=== PATIENT | male | born 1960 | race Hispanic/Latino ===

== ENCOUNTER 2016-11-02 09:36 | Inpatient (IN) | payer MEDICARE ==
[2016-11-02 09:37] VITALS: BMI 703.0
[2016-11-02] MEDS ORDERED: Sodium Chloride 0.9% 1,000 ML IV ONE (09:55)
--- NOTE | 2016-11-02 10:06 | C.PDOC ---
History Of Present Illness 56 y/o male with htn c/o polyuria, polydipsia and occasional blurred vision for the last week, not improving, pt has no hx dm. Time Seen by Provider: 11/02/16 09:55 Chief Complaint (Nursing): High Blood Sugar History Per: Patient, Family History/Exam Limitations: no limitations Onset/Duration Of Symptoms: Days (7) Current Symptoms Are (Timing): Still Present Severity: Moderate Current Diabetic Medications: None Associated Infectious Symptoms: Urinary Frequency. denies: Cough, Sore Throat, Nausea, Vomiting Treatment Prior To Provider Evaluation: None Past Medical History Reviewed: Historical Data, Nursing Documentation, Vital Signs Vital Signs: Last Vital Signs Temp 98.3 F 11/02/16 09:42 Pulse 90 11/02/16 09:42 Resp 16 11/02/16 09:42 BP 124/79 11/02/16 09:42 Pulse Ox 95 11/02/16 11:31 - Medical History PMH: HTN Family History: States: Unknown Family Hx - Social History Hx Tobacco Use: Yes Hx Alcohol Use: No Hx Substance Use: No - Immunization History Hx Tetanus Toxoid Vaccination: No Hx Influenza Vaccination: No Hx Pneumococcal Vaccination: No Review Of Systems Constitutional: Negative for: Fever, Chills Cardiovascular: Negative for: Chest Pain, Palpitations Respiratory: Negative for: Cough, Shortness of Breath Gastrointestinal: Negative for: Nausea, Vomiting, Abdominal Pain Genitourinary: Positive for: Frequency Skin: Negative for: Rash Neurological: Negative for: Weakness, Numbness Physical Exam - Physical Exam Appears: Non-toxic, No Acute Distress, Other (overweight male) Skin: Warm Head: Atraumatic, Normacephalic Eye(s): bilateral: Normal Inspection, PERRL Oral Mucosa: Dry Neck: Normal ROM, Supple Chest: Symmetrical, No Deformity, No Tenderness Cardiovascular: Rhythm Regular, No Murmur Respiratory: Normal Breath Sounds, No Wheezing Gastrointestinal/Abdominal: Bowel Sounds, Soft, No Tenderness, No Distention, No Guarding Extremity: Normal ROM, No Pedal Edema, No Calf Tenderness Neurological/Psych: Oriented x3, Normal Speech, Normal Cognition ED Course And Treatment - Laboratory Results Result Diagrams: 11/02/16 10:19 11/02/16 10:19 O2 Sat by Pulse Oximetry: 95 Medical Decision Making Medical Decision Makin56 y/o with new onset dm; labs ivf, insulin, re-eval 1130 am will admit pt to Dr Lilia Stewart for glucose control Disposition Discussed With Dr.: Renard Stewart Doctor Will See Patient In The: Hospital - Disposition Disposition Time: 11:30 Condition: STABLE Forms: [facility] (Slovenian) - Clinical Impression Clinical Impression: New onset type 2 diabetes mellitus, Hyperglycemia
[2016-11-02 10:23] LABS: BASO # 0.1 K/uL (0.0-0.2); BASO % 0.7 % (0.0-2.0); EOS # 0.2 K/uL (0.0-0.7); EOS % 2.1 % (0.0-4.0); HEMATOCRIT 44.8 % (35.0-51.0); LYMPH # 2.4 K/uL (1.0-4.3); LYMPH % 30.7 % (20.0-40.0); MEAN CELL VOLUME 87.1 fL (80.0-94.0); MEAN CORPUSCULAR HEMOGLOBIN 29.6 pg (27.0-31.0); MEAN PLATELET VOLUME 9.4 fL (7.2-11.7); MONO # 0.6 K/uL (0.0-0.8); MONO % 7.6 % (0.0-10.0); RED CELL DISTRIBUTION WIDTH 13.2 % (11.5-14.5); WHITE BLOOD COUNT 7.7 K/uL (4.8-10.8)
[2016-11-02 10:27] LABS: RBC URINE 1 /hpf (0-3); URINE BILIRUBIN NEGATIVE (NEGATIVE); URINE BLOOD NEGATIVE (NEGATIVE); URINE COLOR Straw (YELLOW); URINE GLUCOSE (UA) 3+ mg/dL (Normal); URINE KETONE NEGATIVE (NEGATIVE); URINE LEUKOCYTE ESTERASE NEG Leu/uL (Negative); URINE PROTEIN NEGATIVE (NEGATIVE); URINE UROBILINOGEN NORMAL mg/dL (0.2-1.0); WBC URINE 1 /hpf (0-5)
[2016-11-02 10:28] LABS: VENOUS BLOOD GAS BASE EXCESS -0.3 mmol/L (0.0-2.0); VENOUS BLOOD GAS PCO2 38 mmHg (40-60); VENOUS BLOOD PH 7.41 (7.32-7.43)
[2016-11-02 10:39] LABS: ALB/GLOB RATIO 1.3 (1.0-2.1); ALKALINE PHOSPHATASE 163 U/L (38-126); ALT/SGPT 30 U/L (21-72); AST/SGOT 20 U/L (17-59); BILIRUBIN,TOTAL 0.7 mg/dL (0.2-1.3); BLOOD UREA NITROGEN 19 mg/dL (9-20); CALCIUM 8.7 mg/dl (8.6-10.4); CARBON DIOXIDE 21 mmol/L (22-30); CHLORIDE 96 mmol/L (98-107); GFR AFRICAN-AMERICAN > 60; POTASSIUM 4.2 mmol/L (3.6-5.2); SODIUM 133 mmol/L (132-148); TOTAL PROTEIN 6.9 g/dL (6.3-8.3)
[2016-11-02 10:44] LABS: GLUCOSE,RANDOM 558 mg/dL (75-110)
[2016-11-02] MEDS ORDERED: (Novolin R) Insulin Human Regular 100 units/ml vial IV ONE (10:47)
[2016-11-02] MEDS ORDERED: (Novolin R) Insulin Human Regular 100 units/ml vial ONE (10:50)
[2016-11-02] MEDS ORDERED: Sodium Chloride 0.9% 1,000 ML IV SCH (11:45)
--- NOTE | 2016-11-02 14:33 | RAD ---
HISTORY: Decreased breath sounds at the lung bases. COMPARISON: 03/01/2012. TECHNIQUE: Chest PA and lateral FINDINGS: LUNGS: No active pulmonary disease. PLEURA: No significant pleural effusion identified. No pneumothorax apparent. CARDIOVASCULAR: No radiographic findings to suggest acute or significant cardiovascular disease. OSSEOUS STRUCTURES: No significant abnormalities. VISUALIZED UPPER ABDOMEN: Normal. OTHER FINDINGS: None. IMPRESSION: No active disease. No significant interval change compared to the prior examination(s). No preliminary report provided by emergency department personnel.
[2016-11-02] MEDS: Sodium Chloride 0.9% 1,000 ML IV SCH (14:48)
[2016-11-02] MEDS ORDERED: (Novolin R) Insulin Human Regular 100 units/ml vial SC SCH (16:30)
[2016-11-02] MEDS: (Novolin R) Insulin Human Regular 100 units/ml vial SC SCH ×2 (16:56→21:36)
[2016-11-02 17:52] VITALS: RESP 20
--- NOTE | 2016-11-02 18:24 | CP.PCM.HP ---
Past Patient History - Infectious Disease Hx of Infectious Diseases: None - Past Medical History & Family History Past Medical History?: No - Past Social History Smoking Status: Light Smoker < 10 Cigarettes Daily - CARDIAC Hx Cardiac Disorders: Yes Hx Hypertension: Yes - PULMONARY Hx Respiratory Disorders: No - NEUROLOGICAL Hx Neurological Disorder: No - HEENT Hx HEENT Problems: No - RENAL Hx Chronic Kidney Disease: No - ENDOCRINE/METABOLIC Hx Endocrine Disorders: No - HEMATOLOGICAL/ONCOLOGICAL Hx Blood Disorders: No - INTEGUMENTARY Hx Dermatological Problems: No - MUSCULOSKELETAL/RHEUMATOLOGICAL Hx Musculoskeletal Disorders: No Hx Falls: No - GASTROINTESTINAL Hx Gastrointestinal Disorders: No - GENITOURINARY/GYNECOLOGICAL Hx Genitourinary Disorders: No - PSYCHIATRIC Hx Psychophysiologic Disorder: No Hx Substance Use: No - SURGICAL HISTORY Hx Surgeries: No - ANESTHESIA Hx Anesthesia: No Meds Allergies/Adverse Reactions: Allergies Allergy/AdvReac Type Severity Reaction Status Date / Time No Known Allergies Allergy Verified 11/02/16 09:52 Physical Exam - Constitutional Appears: Well - Head Exam Head Exam: ATRAUMATIC, NORMAL INSPECTION, NORMOCEPHALIC - Eye Exam Eye Exam: EOMI, Normal appearance, PERRL Pupil Exam: NORMAL ACCOMODATION, PERRL - ENT Exam ENT Exam: Mucous Membranes Moist, Normal Exam - Neck Exam Neck exam: Positive for: Normal Inspection - Respiratory Exam Respiratory Exam: Decreased Breath Sounds - Cardiovascular Exam Cardiovascular Exam: REGULAR RHYTHM, +S1, +S2 - GI/Abdominal Exam GI & Abdominal Exam: Diminished Bowel Sounds, Soft - Rectal Exam Rectal Exam: Deferred Results - Vital Signs Recent Vital Signs: Last Vital Signs Temp 98.2 F 11/02/16 16:00 Pulse 81 11/02/16 16:00 Resp 20 11/02/16 16:00 BP 129/83 11/02/16 16:00 Pulse Ox 96 11/02/16 16:00 - Labs Result Diagrams: 11/02/16 10:19 11/02/16 10:19 Labs: Laboratory Results - last 24 hr 11/02/16 16:24 POC Glucose (mg/dL) 488 H*
[2016-11-03] MEDS: Sodium Chloride 0.9% 1,000 ML IV SCH ×4 (02:02→21:31)
[2016-11-03 07:32] LABS: CHLORIDE 103 mmol/L (98-107); POTASSIUM 3.9 mmol/L (3.6-5.2); SODIUM 134 mmol/L (132-148)
[2016-11-03 07:34] LABS: CHOLESTEROL 191 mg/dL (0-199); GFR AFRICAN-AMERICAN > 60
[2016-11-03 07:35] LABS: BLOOD UREA NITROGEN 14 mg/dL (9-20); CALCIUM 8.1 mg/dl (8.6-10.4); CARBON DIOXIDE 23 mmol/L (22-30); GLUCOSE,RANDOM 373 mg/dL (75-110)
[2016-11-03 07:53] LABS: THYROID STIMULATING HORMONE 1.39 mIU/L (0.46-4.68)
[2016-11-03] MEDS: (Novolin R) Insulin Human Regular 100 units/ml vial SC SCH ×4 (08:22→22:15)
[2016-11-03] MEDS ORDERED: (Novolin R) Insulin Human Regular 100 units/ml vial SC ONE (12:08)
--- NOTE | 2016-11-03 15:24 | CP.PCM.PN ---
Subjective - Date & Time of Evaluation Date of Evaluation: 11/03/16 Time of Evaluation: 08:00 - Subjective Subjective: clinically same Objective - Vital Signs/Intake and Output Vital Signs (last 24 hours): Temp Pulse Resp BP Pulse Ox 98.5 F 73 20 124/85 96 11/03/16 08:00 11/03/16 08:00 11/03/16 08:00 11/03/16 08:00 11/03/16 08:00 - Medications Medications: Current Medications Glimepiride (Amaryl) 4 mg PO ACD [facility] Last Admin: 11/02/16 16:57 Dose: 4 mg Heparin Sodium (Porcine) (Heparin) 5,000 units SC Q12 [facility] Sodium Chloride (Sodium Chloride 0.9%) 1,000 mls @ 80 mls/hr IV .[id number] [facility] Last Admin: 11/03/16 14:30 Dose: Not Given Insulin Human Regular (Novolin R) 0 unit SC ACHS [facility] PRN Reason: Protocol Last Admin: 11/03/16 12:12 Dose: Not Given Lisinopril (Zestril) 5 mg PO DAILY [facility] Last Admin: 11/03/16 09:46 Dose: 5 mg Metformin HCl (Glucophage) 500 mg PO ACBD [facility] Last Admin: 11/03/16 08:21 Dose: 500 mg - Constitutional Appears: Well - Head Exam Head Exam: ATRAUMATIC, NORMAL INSPECTION, NORMOCEPHALIC - Eye Exam Eye Exam: EOMI, Normal appearance, PERRL Pupil Exam: NORMAL ACCOMODATION, PERRL - ENT Exam ENT Exam: Mucous Membranes Moist, Normal Exam - Neck Exam Neck Exam: Full ROM, Normal Inspection. absent: Lymphadenopathy - Respiratory Exam Respiratory Exam: Decreased Breath Sounds - Cardiovascular Exam Cardiovascular Exam: REGULAR RHYTHM, +S1, +S2 - GI/Abdominal Exam GI & Abdominal Exam: Soft, Diminished Bowel Sounds - Rectal Exam Rectal Exam: Deferred
[2016-11-03] MEDS ORDERED: (Lantus) Insulin Glargine, Recombinant SC SCH (22:00)
[2016-11-04 00:31] VITALS: O2SAT 97
--- NOTE | 2016-11-04 06:39 | PN ---
ENDO FOLLOWUP NOTE DATE: LOCATION: Room 353. SUBJECTIVE: This is a 56-year-old male with recent uncontrolled type 2 diabetes, presenting here with marked hyperglycemic accelerations and actually continues to out persistent glycemic accelerations as noted thereof. His glucose values today have ranged from 370 to 449 mg/dL. It was 318 at bedtime last night. LABORATORY DATA: The latest chemistry showed a BUN of 14, sodium 134, potassium 3.9, chloride 103, CO2 of 23, glucose 373, and creatinine 0.9. PLAN: Being of recent onset of type 2 diabetes, we should except enough endogenous pancreatic reserve of his insulin. So, the oral hypoglycemic drug therapy given combination has been ordered right away on admission and was started on metformin given as 500 mg b.i.d. and Amaryl given as 4 mg once daily as ordered. However, because of the persistent hyperglycemic accelerations, we will start him right away tonight on the basal insulin given as Lantus 14 units subcu at bedtime daily to start tonight. We will also increase the metformin to 1 gm b.i.d. before meals as ordered. We will maximize also his Amaryl to 4 mg b.i.d. before meals as given. We will continue the low dose correction scale using regular insulin as given. We will titrate incrementally as indicated to optimize metabolic control. We will continue also the IV hydration to replenish the lost fluid and electrolytes as expected. We will obtain serum chemistry and supplement according as needed. We will follow up. Yolanda Tee MD
[2016-11-04] MEDS: (Novolin R) Insulin Human Regular 100 units/ml vial SC SCH ×3 (08:19→17:25)
[2016-11-04] MEDS: Sodium Chloride 0.9% 1,000 ML IV SCH (11:15)
--- NOTE | 2016-11-04 12:23 | PN ---
ENDO FOLLOWUP NOTE LOCATION: Room #353. SUBJECTIVE: This is a 56-year-old male with recent diagnosis of uncontrolled type 2 diabetes and most likely insulin requiring at this time because of persistent hyperglycemic accelerations despite the initiation of dual oral hypoglycemic drug therapy as given. His glucose values has ranged from 265 to 298 and 405 mg/dL. His latest chemistries shows a BUN of 14, sodium 134, potassium 3.9, chloride 103, CO2 23, glucose 373 and creatinine 0.9. His triglycerides levels are 467 as suspected with recent diagnosis of uncontrolled diabetes mellitus. ASSESSMENT: This is a 56-year-old male with uncontrolled and decompensated type 2 insulin requiring diabetes with marked hyperglycemic acceleration as noted. PLAN OF MANAGEMENT: We will modify his current insulin regimen and increase the basal insulin to 20 units subcu at bedtime daily to start tonight. We will add the premixed insulin regimen with Novolin 70/30 given as 30 units a.c. breakfast and 20 units a.c. dinner to start today. We will titrate incrementally as indicated to optimize metabolic control. We will initiate diabetic education and dietary instructions to include insulin self-administration technique as noted. We will follow. Yolanda Tee MD
[2016-11-04] MEDS ORDERED: (Novolog Mix 70/30) Insulin Aspart/Insulin Aspar 100 units/ml SC SCH (16:30)
[2016-11-04 17:40] VITALS: BP 122/83; PULSE 71; TEMP 97.7
[2016-11-04] MEDS ORDERED: (Lantus) Insulin Glargine, Recombinant SC SCH (22:00)
--- NOTE | 2016-11-05 07:27 | CON ---
DATE: 11/02/16 ENDOCRINOLOGY CONSULT LOCATION: Room 353. HISTORY OF PRESENT ILLNESS: This is a 56-year-old male with recent evaluation for uncontrolled type 2 diabetes of recent onset and now being referred for diabetic evaluation because of marked hyperglycemic accelerations as noted thereof. PAST MEDICAL HISTORY: No prior history of type 2 diabetes and only admits to having a history of hypertension and dyslipidemia, but currently on no medications at this time. FAMILY HISTORY: Positive for diabetes and hypertension. SOCIAL HISTORY: The patient admits to smoking half a pack for some years now. No other known substance use. REVIEW OF SYSTEMS: As mentioned above, admits to generalized body weakness with easy fatigability and tiredness and increasing somnolence in the last week or so prior to admission. Also, admits to episodic bouts of dizziness and lightheadedness, worse on the day of admission. No chest pains or palpitations or PND. His oral intake is variable with nausea, dyspepsia, and vague upper abdominal pain. Also admits to marked polyuria, nocturia, polydipsia over the past week or so prior to admission. PHYSICAL EXAMINATION GENERAL: This is an overweight male in no apparent distress. VITAL SIGNS: Blood pressure 140/80, pulse of 100 beats per minute and regular, temperature 98, respirations 20. Height is 6 feet, weight is 265 pounds. HEENT: Head is normocephalic. Eyes, anicteric with pink conjunctivae. Funduscopy not possible at this time. Ears, nose and throat are otherwise normal. NECK: Supple. Thyroid gland is normal in size. No carotid bruits or any cervical adenopathy. CARDIOPULMONARY: Adynamic precordium. S1, S2 is rapid and regular. LUNGS: Clear to auscultation. ABDOMEN: Obese, soft with positive bowel sounds. EXTREMITIES: No peripheral edema. Pulses are +2 bilaterally. LABORATORY DATA: The initial chemistries showed a BUN of 19. Sodium 133, potassium 4.2, chloride 96, CO2 21, glucose 558, creatinine 0.8. The subsequent glucose is 488 mg/dL. ASSESSMENT: This is a 56-year-old male with uncontrolled and decompensated type 2 diabetes, initially insulin requiring because of the glucotoxicity, but should improve remarkably with just a combination of oral hypoglycemic therapy as noted. There is also mild evidence of spurious hyponatremia and prerenal azotemia related to the recent hyperglycemic accelerations and increased osmotic diuresis there of. PLAN: Plan of management as discussed with the patient and staff. We will start him right away on a dual oral hypoglycemic drug therapy as given with metformin given as 500 mg b.i.d. before meals and Amaryl given as 4 mg before dinner to start tonight as ordered. We will continue the IV hydration and we will obtain serial chemistries and supplement accordingly as needed. We will continue the diabetic education and diabetic instructions at the time of this admission, especially with weight loss efforts to be reinforced as noted thereof. We will also recommend smoking cessation, especially in the light of recent uncontrolled type 2 diabetes as mentioned. We will reinforce diabetic education and diabetic instructions to include insulin self-administration techniques if indicated. We will follow. Yolanda Tee MD
[2016-11-05] MEDS ORDERED: (Novolog Mix 70/30) Insulin Aspart/Insulin Aspar 100 units/ml SC SCH (07:30)
== END 2016-11-04 18:41 | disposition home or self-care (01) | DRG 638 ==
LOC: C.ER 09:36 → C.9E 11:29 → C.3T 11:46 → OBSVTOIN 11-03 13:45
PROVIDERS: ADMIT Internal Medicine Nephrology; ATTEND Internal Medicine Nephrology
DX: E11.65 Type 2 diabetes mellitus with hyperglycemia (principal); E87.1 Hypo-osmolality and hyponatremia; I10 Essential (primary) hypertension; F17.200 Nicotine dependence, unspecified, uncomplicated; Z79.4 Long term (current) use of insulin

== ENCOUNTER 2018-03-19 20:42 | Emergency (ER) | payer MEDICARE ==
[2018-03-19 20:42] VITALS: BMI 703.0
[2018-03-19 20:49] VITALS: O2SAT 98
[2018-03-19] MEDS ORDERED: Sodium Chloride 0.9% 1,000 ML IV ONE (21:30)
[2018-03-19] MEDS ORDERED: Morphine 4 MG/ML VIAL IV STA (21:30)
[2018-03-19 21:41] LABS: BASO % 0.3 % (0.0-2.0); EOS # 0.1 K/uL (0.0-0.7); EOS % 0.6 % (0.0-4.0); HEMOGLOBIN 16.7 g/dL (12.0-18.0); LYMPH % 8.4 % (20.0-40.0); MEAN CELL VOLUME 88.7 fL (80.0-94.0); MEAN CORPUSCULAR HEMOGLOBIN 29.6 pg (27.0-31.0); MEAN CORPUSCULAR HGB CONC 33.4 g/dL (33.0-37.0); MEAN PLATELET VOLUME 8.9 fL (7.2-11.7); MONO # 0.7 K/uL (0.0-0.8); MONO % 5.4 % (0.0-10.0); NEUT # 10.4 K/uL (1.8-7.0); NEUT % 85.3 % (50.0-75.0); PLATELET COUNT 217 K/uL (130-400); RBC 5.62 Mil/uL (4.40-5.90); WHITE BLOOD COUNT 12.2 K/uL (4.8-10.8)
--- NOTE | 2018-03-19 21:47 | C.PDOC ---
History Of Present Illness 57 year old male presents to the ER with one day Hx of generalized abdominal pain with vomiting and diarrhea. Denies chest pain, fever, or chills. Time Seen by Provider: 03/19/18 21:06 Chief Complaint (Nursing): Abdominal Pain History Per: Patient History/Exam Limitations: no limitations Onset/Duration Of Symptoms: Days (1) Current Symptoms Are (Timing): Still Present Location Of Pain/Discomfort: Diffuse Radiation Of Pain To:: None Quality Of Discomfort: Unable To Describe Associated Symptoms: Vomiting, Diarrhea. denies: Fever, Chest Pain Exacerbating Factors: None Alleviating Factors: None Recent travel outside of the [place]: No Past Medical History Reviewed: Historical Data, Nursing Documentation, Vital Signs Vital Signs: Last Vital Signs Temp 97.6 F 03/19/18 20:47 Pulse 116 H 03/19/18 20:47 Resp 20 03/19/18 20:47 BP 146/92 H 03/19/18 20:47 Pulse Ox 98 03/19/18 20:47 - Medical History PMH: HTN Denies: Chronic Kidney Disease Family History: States: Unknown Family Hx - Social History Hx Tobacco Use: Yes Hx Alcohol Use: No Hx Substance Use: No - Immunization History Hx Tetanus Toxoid Vaccination: No Hx Influenza Vaccination: No Hx Pneumococcal Vaccination: No Review Of Systems Except As Marked, All Systems Reviewed And Found Negative. Constitutional: Negative for: Fever, Chills Cardiovascular: Negative for: Chest Pain Gastrointestinal: Positive for: Vomiting, Abdominal Pain, Diarrhea Physical Exam - Physical Exam Appears: Non-toxic Skin: Normal Color, Warm, Dry Head: Atraumatic, Normacephalic Eye(s): bilateral: Normal Inspection Oral Mucosa: Moist Neck: Normal, Supple Chest: Symmetrical, No Tenderness Cardiovascular: Rhythm Regular Respiratory: Normal Breath Sounds, No Rales, No Rhonchi, No Wheezing Gastrointestinal/Abdominal: Soft, Tenderness (Generalized), No Guarding, No Rebound Back: No CVA Tenderness Neurological/Psych: Oriented x3, Normal Speech ED Course And Treatment - Laboratory Results Result Diagrams: 03/19/18 21:34 03/19/18 21:34 ECG: Interpreted By Me, Viewed By Me ECG Rhythm: Sinus Rhythm ECG Interpretation: Normal Interpretation Of ECG: Normal intervals, normal axis, no ST/T wave abnormalities. Rate From EC O2 Sat by Pulse Oximetry: 98 (Room air) Pulse Ox Interpretation: Normal Medical Decision Making Medical Decision Making: Assessment: Abdominal pain. patient states improvement tolerated po's will discharge home to follow up with pmd within 2 days Disposition - Disposition Referrals: [facility] [Outside] Disposition: HOME/ ROUTINE Disposition Time: 23:26 Condition: IMPROVED Additional Instructions: follow up with your doctor within 2 days call to make an appointment take medications as prescribed return to ER if symptoms worsens or progress Prescriptions: Ciprofloxacin HCl [Cipro] 500 mg PO BID #20 tab Famotidine [Pepcid] 20 mg PO BID #20 tab Metronidazole [Flagyl] 500 mg PO BID #20 tablet Ondansetron ODT [Zofran ODT] 4 mg PO TID PRN #12 odt PRN Reason: Nausea/Vomiting Instructions: Diarrhea in Adolescents and Adults, Hyperglycemia, Adult (DC) Forms: [facility] (Romansh), General Discharge Instructions, Work Excuse - Clinical Impression Clinical Impression: Hyperglycemia, Diarrhea - Scribe Statement The provider has reviewed the documentation as recorded by the Scribdmitriy Reyes All medical record entries made by the Jose Eduardoibdmitriy were at my direction and personally dictated by me. I have reviewed the chart and agree that the record accurately reflects my personal performance of the history, physical exam, medical decision making, and the department course for this patient. I have also personally directed, reviewed, and agree with the discharge instructions and disposition.
[2018-03-19 21:52] LABS: ALB/GLOB RATIO 1.5 (1.0-2.1); ALBUMIN 4.6 g/dL (3.5-5.0); ALT/SGPT 22 U/L (21-72); AST/SGOT 20 U/L (17-59); BLOOD UREA NITROGEN 19 mg/dL (9-20); CALCIUM 9.3 mg/dl (8.6-10.4); GFR NON-AFRICAN AMERICAN > 60; LIPASE 132 U/L (23-300)
[2018-03-19] MEDS ORDERED: Iohexol 300 100 ML IJ ONE (21:58)
[2018-03-19] MEDS ORDERED: (Novolin R) Insulin Human Regular 100 units/ml vial IV ONE (22:05)
[2018-03-19] MEDS ORDERED: (Novolin R) Insulin Human Regular 100 units/ml vial ONE (22:40)
[2018-03-19 22:41] LABS: URINE BILIRUBIN NEGATIVE (NEGATIVE); URINE BLOOD 1+ (NEGATIVE); URINE CLARITY Clear (Clear); URINE COLOR Straw (YELLOW); URINE GLUCOSE (UA) 3+ mg/dL (Normal); URINE LEUKOCYTE ESTERASE NEG Leu/uL (Negative); URINE PROTEIN NEGATIVE (NEGATIVE); URINE UROBILINOGEN NORMAL mg/dL (0.2-1.0)
[2018-03-19 22:46] LABS: BANDS 6 % (0-2); EOSINOPHIL 2 % (0-4); LYMPHOCYTE 7 % (20-40); MONOCYTE 4 % (0-10); NEUTROPHIL 81 % (50-75); PLATELET ESTIMATE NORMAL (NORMAL); TOTAL CELLS COUNTED 100
[2018-03-19 22:47] LABS: GIANT PLATELETS PRESENT; LARGE PLATELETS PRESENT; MICROCYTOSIS SLIGHT
[2018-03-19] MEDS ORDERED: Aluminum Hydroxide/Magnesium Hydroxide Susp (30 mL) PO STA (23:12)
[2018-03-19] MEDS ORDERED: Aluminum Hydroxide/Magnesium Hydroxide Susp (30 mL) ONE (23:25)
[2018-03-19 23:36] VITALS: BP 167/78; PULSE 89; RESP 18; TEMP 98.9
--- NOTE | 2018-03-20 09:49 | CT ---
CT abdomen and pelvis HISTORY: Abdominal pain. COMPARISON: None. TECHNIQUE: Multiple contiguous axial images were performed through the abdomen and pelvis with the use of intravenous contrast. Subsequently, sagittal and coronal reformatted images were obtained. Findings: Mild atelectasis at the lung bases. No pleural or pericardial effusion. Fatty infiltration of the liver. Gallbladder is preserved. Spleen is preserved. Adrenal glands are preserved. Mild fatty atrophy of the pancreas. Few distended loops of small bowel in the upper and mid abdomen. Right kidney: 9 millimeter upper pole hypodensity, too small to adequately characterize. Midpole 3 millimeter nonobstructive calculus. Left Kidney: 8 millimeter lower pole low-attenuation lesion, too small to adequately characterize. Mild perinephric fat stranding. Urinary bladder is grossly preserved. Heterogeneous prostate. Fecal retention in the colon. Appendix is within normal limits. Atherosclerotic calcification and plaque within the aorta. Few shotty para-aortic and inguinal lymph nodes. Few shotty mesenteric lymph nodes. Small fat containing umbilical hernia. Degenerative changes in the spine. Bridging sclerosis of the bilateral SI joints. Mild anterolisthesis of L5 on S1 with associated pars defects. Impression: 1. Few mildly distended loops of small bowel seen within the upper mid abdomen which may represent an enteritis. Clinical correlation. 2. Small fat containing umbilical hernia. 3. 3 millimeter midpole nonobstructive right renal calculus. 4. Bilateral renal low-attenuation lesions, too small to adequately characterize as described above. 5. Fatty infiltration of the liver. 6. Mild anterolisthesis of L5 on S1 with associated pars defects. Additional findings as above. A preliminary report was generated at 11:04 p.m. on 03/19/[address] Marty Rosales from [facility].
--- NOTE | 2018-03-24 22:58 | CARD ---
APPROVED REPORT Date of service: 03/19/2018 EKG Measurement Heart [id number] <Conclusion> Normal sinus rhythm Normal ECG
== END 2018-03-19 23:37 | disposition home or self-care (01) ==
LOC: C.ER 20:42
DX: R73.9 Hyperglycemia, unspecified (principal); R19.7 Diarrhea, unspecified
CPT/HCPCS: 74177; 80053; 81001; 82948; 83690; 83735; 84484; 85025; 93005; 96374; 96375; 99285; C9113; J2270; J2405; J7030; Q9967

== ENCOUNTER 2018-06-04 11:37 | Emergency (ER) | payer MEDICARE ==
[2018-06-04 11:37] VITALS: BMI 703.0
[2018-06-04 11:43] VITALS: BP 154/87; PULSE 68; RESP 18; TEMP 97.6; O2SAT 98
--- NOTE | 2018-06-04 12:43 | C.PDOC ---
History Of Present Illness 58 y/o male with hx of dm, on metformin and trujeo, presents to ed with dental abscess x 2 days. pt denies fevers. pt unable to see dentist due to lack of insurance and funds. Time Seen by Provider: 06/04/18 12:08 Chief Complaint (Nursing): Dental Pain History Per: Patient History/Exam Limitations: no limitations Onset/Duration Of Symptoms: Days Current Symptoms Are (Timing): Still Present Severity: Moderate Past Medical History Reviewed: Historical Data, Nursing Documentation, Vital Signs Vital Signs: Last Vital Signs Temp 97.6 F 06/04/18 11:43 Pulse 68 06/04/18 11:43 Resp 18 06/04/18 11:43 BP 154/87 H 06/04/18 11:43 Pulse Ox 98 06/04/18 11:43 - Medical History PMH: Back Problems, HTN Denies: Chronic Kidney Disease Surgical History: No Surg Hx Family History: States: No Known Family Hx - Social History Hx Tobacco Use: Yes Hx Alcohol Use: Yes Hx Substance Use: No - Immunization History Hx Tetanus Toxoid Vaccination: No Hx Influenza Vaccination: No Hx Pneumococcal Vaccination: No Review Of Systems Constitutional: Negative for: Fever, Chills ENT: Positive for: Mouth Swelling Physical Exam - Physical Exam Appears: Non-toxic, No Acute Distress Skin: Warm, Dry Head: Normacephalic, Swelling (mild swelling to right face around mandible) Eye(s): bilateral: Normal Inspection Nose: Normal Oral Mucosa: Moist Teeth: Other (multiple missing teeth, remaining teeth in poor state) Gingiva: Swelling (swelling to lower right side), Tender (tenderness to right lower side), Other (fluctuance to right lower side, no drainage) Throat: Normal, No Erythema, No Exudate Neck: Supple Chest: Symmetrical Neurological/Psych: Oriented x3, Normal Speech ED Course And Treatment O2 Sat by Pulse Oximetry: 98 (RA) Pulse Ox Interpretation: Normal Medical Decision Making Medical Decision Making: given size of abscess and dm, pt offered admission for iv antibiotics and omfs consult for abscess.. pt sts he cannot stay for personal reasons; he has things to do, and that antibiotics in past resolved a prior abscess. explained to patient and significant other that this infection could spread rapidly, could be life threatening, and that his diabetes increased the risk. pt still declines admission, and understands the risks and consequences of leaving against medical advice. pt to be given rx for clindamycin and list of dental resources. Disposition Counseled Patient/Family Regarding: Studies Performed, Diagnosis, Need For Followup, Rx Given - Disposition Disposition: AGAINST MEDICAL ADVICE Disposition Time: 12:57 Condition: STABLE Additional Instructions: Take antibiotics as prescribed. Tylenol or Motrin for pain. Go to a dentist as soon as possible. Return to ER for worsening swelling in face, trouble breathing or swallowing, elevated blood sugars, fever, or any other concerns. 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 - Scribe Statement The provider has reviewed the documentation as recorded by the Yg Nicole Provider Attestation All medical record entries made by the Jose Eduardoibdmitriy were at my direction and personally dictated by me. I have reviewed the chart and agree that the record accurately reflects my personal performance of the history, physical exam, medical decision making, and the department course for this patient. I have also personally directed, reviewed, and agree with the discharge instructions and disposition.
== END 2018-06-04 13:06 | disposition left against medical advice (07) ==
LOC: C.ER 11:37
DX: K04.7 Periapical abscess without sinus (principal); E11.9 Type 2 diabetes mellitus without complications; I10 Essential (primary) hypertension; Z72.0 Tobacco use